=== PATIENT | female | born 1975 | race Two or more races ===

== ENCOUNTER 2024-10-26 20:25 | Emergency (ER) | payer MEDICAID, SELFPAY ==
[2024-10-26 20:28] VITALS: BP 164/99; PULSE 65; RESP 18; TEMP 36.8; O2SAT 98; BMI 31.8
--- NOTE | 2024-10-26 20:28 | XR_ITS ---
Examination: AP chest single view FINDINGS: Chest single view EXAMINATION: October 26, 2024 2046 hours INDICATIONS: Chest pain shortness of breath today. FINDINGS: Normal heart size. Lungs are clear. The osseous structures are intact IMPRESSION: No active disease
--- NOTE | 2024-10-26 20:28 | PD.EDCHEST ---
ED Chest Pain RME/HPI General Chief Complaint: Chest Pain Stated Complaint: CHEST PAIN Time Seen by Provider: 10/26/24 20:28 Arrival date/time: 10/26/24 20:25 RME / HPI RME / HPI narrative: Dr. Packer?s Main ED Evaluation: 49yo female CLAUDETTE from home presents to the ED for a chief complaint of chest pain. Patient states she's had intermittent chest pain for the last one month. She is currently being seen by a electrician substation and has a Holter monitor in place. Patient states today, her left-sided chest pain became worse and was constant, reporting it radiates down her left arm. Patient states her pain worsens when she breathes and on palpation. Patient denies any fever, chills, cough, shortness of breath or any other associated symptoms. EMS administered sublingual nitroglycerin 0.4mg, nitropaste, and aspirin 162mg en route. Related Data Home Medications ?Medication ?Instructions ?Recorded ?Confirmed albuterol sulfate 90 mcg/actuation 2 mcg inhalation Q4H PRN Shortness 12/26/23 01/13/24 aerosol inhaler Of Breath Or Wheezing fluticasone propionate 230 2 puff inhalation BID 12/26/23 01/13/24 mcg-salmeterol 21 mcg/actuation HFA inhaler (Advair HFA) Allergies Allergy/AdvReac Type Severity Reaction Status Date / Time morphine Allergy Intermediate Palpitation Verified 01/13/24 08:42 s shellfish derived Allergy Chest Pain Verified 01/14/24 15:58 Review of Systems Review of Systems Systems Reviewed: All systems reviewed, normal except as documented Past Medical History Past Medical History NEUROLOGIC: Positive Migraine; Negative Neurological Disorders or Seizures CARDIAC: Negative Congestive Heart Failure RESPIRATORY: Positive Asthma; Negative Chronic Obstructive Pulmonary Disease (COPD) GASTROINTESTINAL: Positive Gastrointestinal Disorders, Diverticulitis and Obesity; Negative Hepatitis GENITOURINARY: Negative Genitourinary Disorders or Renal Disease REPRODUCTIVE: Positive Previous Pregnancies (3) MUSCULOSKELETAL: Positive Musculoskeletal Disorders, Arthritis and Fractures (RIGHT ANKLE) ENDOCRINE: Negative Endocrine Disorders, Diabetes Mellitus Type 1 or Diabetes Mellitus Type 2 HEMATOLOGIC: Negative Blood Disorders or Sickle Cell Disease OTHER HISTORY: Positive Chicken Pox and Measles; Negative Hospitalization, Autoimmune Disease, Shingles, Falls, Blood Transfusions, Blood Transfusion Reaction, Anesthesia Reactions, MRSA, Mumps, Clostridium Difficile or Cancer Family History FAMILY HISTORY: Positive Family Cardiac Disorders; Negative Family Neurologic Problems, Family Psychiatric Problems, Family Respiratory Disorders, Family Gastrointestinal Problems, Family Cancer, Family Surgery or Family Anesthesia Reaction Surgical History SURGICAL: Positive Abdominal Surgery and Open Reduction Internal Fixation (RIGHT ANKLE, has metal,); Negative Neurologic Surgery or Tubal Ligation Social History SMOKING STATUS: Never smoker SUBSTANCE USE: does not use ED Exam Narrative Physical exam: GENERAL APPEARANCE: alert and oriented x 4, tremulous, well-developed, well-nourished, no acute distress VITALS: All vitals were reviewed and the pulse ox is % on room air, which is normal according to my interpretation. HEENT: Normocephalic, atraumatic; pupils equal, round, reactive to light; EOMI; mucous membranes pink, moist; oropharynx clear NECK: Supple LUNGS: CTABL; no wheezes, no rales, no rhonchi HEART: Regular rate, regular rhythm; normal S1, S2; no murmurs; Holter monitor in place ABDOMEN: non distended; normal BS; soft, no tenderness, no guarding, no rebound; no masses, no organomegaly, no hernia BACK: no CVA tenderness EXTREMITIES: atraumatic; no edema NEUROLOGIC: awake; alert and oriented x4; cranial nerves II-XII grossly intact; no focal sensory or motor deficits PSYCHIATRIC: anxious mood and affect SKIN: warm, dry, normal color; no rashes Course Course Course Narrative: CXR is ordered for determining the etiology of chest pain. Quality Measures none Orders Category Date Time Status [employer] NOW Care 10/26/24 20:28 Active EKG (ED ONLY) *Do not use* NOW Care 10/26/24 20:28 Completed EKG (ED Only) Stat Exams 10/26/24 20:28 Ordered XR chest 1V portable Stat Exams 10/26/24 20:28 Completed B-Type Natriuretic Peptide Stat Lab 10/26/24 20:51 Completed CBC Stat Lab 10/26/24 20:51 Completed Comprehensive Metabolic Panel Stat Lab 10/26/24 20:51 Completed Lipase Stat Lab 10/26/24 20:51 Completed Magnesium Stat Lab 10/26/24 20:51 Completed Partial Thromboplastin Time Stat Lab 10/26/24 20:51 Completed Prothrombin Time with INR Stat Lab 10/26/24 20:51 Completed Troponin I Stat Lab 10/26/24 20:51 Completed HYDROcodone*/APAP 5/325 [Ector 5/325] Med 10/26/24 22:42 Discontinued 1 tab PO X1 ONE KCL 10% Liq UDC 15 ML Med 10/26/24 22:01 Discontinued 40 meq PO X1 ONE Ketorolac Inj [Toradol Inj] Med 10/26/24 20:28 Discontinued 15 mg IVP X1 ONE LORazepam [Ativan Inj] Med 10/26/24 20:28 Discontinued 1 mg IVP X1 ONE Reevaluation(s) Reevaluation #1: Patient states her pain has improved to a 7 out of 10 in severity. Ector ordered. Time: 22:41 Vital Signs Vital signs: Vital Signs Temperature 98.2 F 10/26/24 20: Pulse Rate 65 10/26/24 20:28 Respiratory Rate 18 10/26/24 20:28 Blood Pressure 164/99 H 10/26/24 20:28 Pulse Oximetry (%) 98 10/26/24 20:28 Oxygen Delivery Method Room Air 10/26/24 20:28 Chest Pain MDM Narrative MDM Narrative:: Scribe Attestation: 10/26/24 Martita Rodriguez am scribing for and in the presence of Dr. Packer. Patient data External records reviewed:: [facility] previous records (Per chart review, patient was seen here on 10/08/23 for non-cardiac chest pain.) Clinical information provided by:: patient Social determinants that could affect healthcare access:: none Patient has the following chronic illnesses:: none How is presenting disease/condition affected by chronic disease/condition?: no chronic disease Evaluation data The following diagnostics were reviewed and interpreted by me:: lab results, radiology exam(s) and EKG tracing(s) Lab and/or radiology exams considered but not ordered:: D-dimer considered, but the patient is not tachypneic, tachycardic or hypoxic. Interpretation Summary: CBC is normal, PT and INR are normal, PTT is normal, Potassium is 3.2, Magnesium is normal, Troponin is normal, BNP is normal, according to my interpretation. EKG done at 2026, sinus bradycardia, rate of 57, Q wave in V3, no acute ST-T wave changes, no STEMI, according to my interpretation. [facility] Report Signed Patient: DAVID SHIELDS Record#: [id number] Birthdate: 1975 Age/Sex: 49 / F Location: [facility] Attending Dr: Ordering Physician: Coy Devine Date of Service: 10/26/24 Procedure(s): XR chest 2V Accession Number(s): [id number] cc: Coy Devine; Tj Butcher MD; Patti Lorenzo ([facility])~ Examination: PA lateral chest 2 views TECHNIQUE: Upright PA and lateral chest 2 views Standing hand: October 26, 2024, 1918 hours Comparison July 14, 2023 INDICATIONS: Chest pain shortness of breath beginning 3 days ago. FINDINGS: Bibasilar pneumonia, including in the posterior basal segments of both lower lobes noted on the lateral view Normal heart size No pulmonary edema. The osseous structures are intact IMPRESSION: Bibasilar pneumonia Dictated By: Tj Butcher MD Signed By: <Electronically signed by Tj Butcher MD in [place]> 10/26/24 1855 Medications / Prescriptions Medications or Prescriptions considered but not ordered:: none Medication administrations:: Medication Administration History Discontinued Medications Hydrocodone Bitart/Acetaminophen (Hydrocodone/Apap 5/325 Tablet) 1 tab PO X1 ONE Stop: 10/26/24 22:43 Last Admin: 10/26/24 22:57 Dose: 1 tab Documented By: BD Ketorolac Tromethamine (Ketorolac Inj 30 Mg/Ml Vial) 15 mg IVP X1 ONE Stop: 10/26/24 20:29 Last Admin: 10/26/24 20:51 Dose: 15 mg Documented By: BD Lorazepam (Lorazepam 2 Mg/Ml Vial) 1 mg IVP X1 ONE Stop: 10/26/24 20:29 Last Admin: 10/26/24 20:51 Dose: 1 mg Documented By: BD Potassium Chloride (Potassium Chloride 10% 20 Meq/15 Ml Udc) 40 meq PO X1 ONE Stop: 10/26/24 22:02 Last Admin: 10/26/24 22:27 Dose: 40 meq Documented By: BD see above Consultations Consultation(s) initiated? (list below): No Diagnosis Chest Pain Differential Diagnosis: atypical chest pain, chest pain and other (chest wall pain, ACS) Most likely diagnosis given after review of the tests above:: see clinical impression below Admission Indicated Admission indicated?: not indicated Admission Request Was there a request for admission?: No Disposition Plan Disposition Plan: Discharge Discharge Attestation Discharge Attestation: The patient and all family members were given an opportunity to ask questions and understood the discharge instructions. Discharge instructions specifically effects, indications for sooner follow up or return to the emergency department, and the expected course of current diagnosis. Patient condition: Stable Discharge Plan Plan Patient Disposition: HOME (Self Care) Prescriptions/Referrals Prescriptions/Med Rec: No Action albuterol sulfate 90 mcg/actuation HFA aerosol inhaler 2 mcg INHALATION Q4H PRN (Reason: Shortness Of Breath Or Wheezing) fluticasone propion-salmeterol [Advair HFA] 230-21 mcg/actuation HFA aerosol inhaler 2 puff INHALATION BID Referrals: Eusebio Cuevas MD [Primary Care Provider] - In 1 week Problem List Clinical Impression: Atypical chest pain, Anterior chest wall pain Patient/Caregiver Discharge Instructions Education Materials: ED Chest Wall Pain, Costochondritis Print Language: Ghanaian Stand Alone Forms: Michelle Award Info., Patient Portal Info Letter
[2024-10-26 20:35] VITALS: PULSE 100; RESP 22; O2SAT 98
[2024-10-26] MEDS: LORazepam 2 MG/ML VIAL 1 MG IVP (20:51)
[2024-10-26] MEDS: KETOROLAC INJ 30 MG/ML VIAL 15 MG IVP (20:51)
[2024-10-26 21:22] LABS: Basophils % (Auto) 1 % (0-2.5); Eosinophils # (Auto) 0.4 Thou/mm3 (0.0-0.5); Eosinophils % (Auto) 5 % (0-10); Hematocrit 36.6 % (36.0-46.0); Hemoglobin 13.1 g/dL (12.0-16.0); Immature Granulocytes % (Auto) 0 % (0-0); Immature Granulocytes Auto 0.01 Thou/mm3 (0.00-0.00); Lymphocytes % (Auto) 50 % (10-50); Mean Corpuscular HGB Conc 35.8 g/dl (31.0-37.0); Mean Corpuscular Hemoglobin 31.8 pg (25.0-35.0); Mean Corpuscular Volume 89 fL (80-100); Monocytes # (Auto) 0.5 Thou/mm3 (0.0-0.8); Monocytes % (Auto) 6 % (0-12); Neutrophils # (Auto) 3.1 Thou/mm3 (1.8-7.7); Neutrophils % (Auto) 38 % (37-80); Nucleated Red Blood Cell % 0 /100 WBC (0); Platelet Count 184 Thou/mm3 (140-440); RDW Standard Deviation 42.7 fL (36.4-46.3); Red Blood Count 4.12 Miln/mm3 (4.00-5.20)
[2024-10-26 21:43] LABS: B-Type Natriuretic Peptide < 20 pg/mL (0-100); Partial Thromboplastin Time 28.2 Seconds (22.0-36.0); Prothrombin Time 11.1 Seconds (9.0-12.2)
[2024-10-26 21:46] LABS: Alanine Aminotransferase 132 U/L (10-49); Albumin, Serum 4.5 gm/dL (3.5-5.0); Albumin/Globulin Ratio 1.7 (1.2-2.2); Alkaline Phosphatase 114 U/L (46-116); Anion Gap 10 (7-16); Aspartate Amino Transferase 66 U/L (0-34); BUN/Creatinine Ratio 13 Ratio (12-20); Bilirubin,Total 0.6 mg/dL (0.3-1.2); Blood Urea Nitrogen 8 mg/dL (9-23); Calcium 9.1 mg/dL (8.3-10.6); Calcium (Corrected) 9.1 mg/dL (8.5-10.1); Carbon Dioxide 23.8 mMol/L (20.0-31.0); Chloride 105 mMol/L (98-107); Creatinine (Component) 0.6 mg/dL (0.6-1.3); Estimated Creatinine Clearance 86.6 mL/min (>60); Globulin 2.7 gm/dL (2.3-3.5); Glucose 103 mg/dL (74-106); Lipase 38 U/L (12-53); Magnesium 1.8 mg/dL (1.6-2.6); Osmolality,Calculated 275 (275-295); Potassium 3.2 mMol/L (3.4-5.1); Sodium 139 mMol/L (136-145); Total Protein 7.2 gm/dL (5.7-8.2); Troponin I < 0.020 ng/mL (0.0-0.045); eGFR > 60 See Note
[2024-10-26] MEDS: POTASSIUM CHLORIDE 10% 20 MEQ/15 ML UDC 40 MEQ PO (22:27)
[2024-10-26] MEDS: HYDROcodone/APAP 5/325 TABLET 1 TAB PO (22:57)
[2024-10-26 22:58] VITALS: BP 121/70; PULSE 73; RESP 15; TEMP 37; O2SAT 97
[2024-10-27 00:31] VITALS: BP 121/72; PULSE 56; RESP 15; TEMP 37; O2SAT 97
[2024-10-27] MEDS: HYDROmorphone INJ 2 MG/ML VIAL 1 MG IVP (00:32)
== END 2024-10-27 00:41 | disposition home or self-care (01) ==
PROVIDERS: Emergency Provider Emergency Medicine; PCP Family Medicine
DX: R07.89 Other chest pain (principal)
CPT/HCPCS: 36415; 71045; 80053; 83690; 83735; 83880; 84484; 85025; 85610; 85730; 93005; 96374; 96375; 99284; J1171; J1885; J2060; A9270

== ENCOUNTER → 2024-11-05 | Outpatient (CLI) | payer OTHER, SELFPAY ==
--- NOTE | 2024-11-05 14:19 | XR_ITS ---
Examination: MRI lumbar spine without contrast Date and time of exam: November 05, 2024 1508 hours INDICATIONS: Low back pain radiating down the legs beginning 13 years ago Technique: Multiple MRI axial and sagittal sections lumbar spine. Sagittal T2-weighted images, TR 3500, TE 118 T1 weighted transverse sections, TR 688 T8.5, T2-weighted sagittal sections T1 weighted sagittal sections TR 621, TE 30 T2 axial sections, TR 4, 190, TE 84. Findings: Adequate alignment lumbar vertebral bodies No lumbar fracture Reactive bony endplate change L5-S1 Advanced disc narrowing L5-S1 L5-S1 3 mm central lumbar disc bulge contiguous with the right S1 nerve root L4-L5 3 mm central lumbar disc bulge More cephalad levels unremarkable IMPRESSION: Advanced degenerative disc disease L5-S1 L5-S1 3 mm central lumbar disc bulge contiguous with the right S1 nerve root L4-L5 3 mm central lumbar disc bulge
== END | disposition home or self-care (01) ==
PROVIDERS: Referring Provider Nurse Practitioner; Visit Provider Nurse Practitioner
DX: M51.370 Other intervertebral disc degeneration, lumbosacral region with discogenic back pain only (principal); M51.360 Other intervertebral disc degeneration, lumbar region with discogenic back pain only
CPT/HCPCS: 72148